=== PATIENT | male | born 1965 | race African-American/Black ===

== ENCOUNTER 2018-12-28 10:52 | Inpatient (IN) | payer BC, OTHER ==
[~2018-12-28] VITALS: Ht 172.7 cm; Wt 73.9 kg
[~2018-12-28 10:52] MED LIST: CARI250T PO
[2018-12-28 14:31] LABS: BASOPHILS % 0.6 % (0.0-2.0); EOSINOPHILS % 4.3 % (0.0-5.0); HEMATOCRIT. 40.4 % (42.0-52.0); HEMOGLOBIN. 13.3 g/dL (14.0-18.0); LYMPHOCYTES % 10.2 % (20.0-50.0); MEAN CORPUSCULAR HEMOGLOBIN 26.4 pg (28.0-32.0); MEAN CORPUSCULAR VOLUME 80.2 fL (80.0-94.0); MEAN PLATELET VOLUME 8.4 fl (7.4-10.4); MONOCYTES % 11.6 % (2.0-8.0); NEUTROPHILS % 73.3 % (40.0-76.0); PLATELET 245 x1000/uL (130-400); RED BLOOD CELL COUNT 5.03 mill/uL (4.7-6.1); RED CELL DISTRIBUTION WIDTH 14.8 % (11.6-14.6)
[2018-12-28 14:36] LABS: CHLORIDE 102 mEq/L (98-107); INR 1.1; PROTHROMBIN TIME 10.8 sec (9.1-11.1)
[2018-12-28] MEDS ORDERED: AMLODIPINE 10MG TABLET PO ONE (15:00)
[2018-12-28 18:45] LABS: CLARITY URINE CLEAR (CLEAR); COLOR URINE YELLOW (YELLOW); KETONES URINE 1+ (NEGATIVE); LEUKOCYTE ESTERASE URINE NEGATIVE (NEGATIVE); NITRITE URINE NEGATIVE (NEGATIVE); OCCULT BLOOD URINE NEGATIVE (NEGATIVE); PROTEIN URINE 1+ (NEGATIVE); SPECIFIC GRAVITY URINE 1.019 (1.005-1.030)
[2018-12-28 18:53] LABS: *AMPHETAMINES SCREEN URINE NEGATIVE (NEGATIVE); *BARBITURATES SCREEN URINE NEGATIVE (NEGATIVE); *BENZODIAZEPINES SCREEN URINE NEGATIVE (NEGATIVE)
[2018-12-28 18:54] LABS: *COCAINE SCREEN URINE NEGATIVE (NEGATIVE); CANNABINOID URINE SCREEN NEGATIVE (NEGATIVE); METHADONE URINE SCREEN NEGATIVE (NEGATIVE); OPIATES URINE SCREEN NEGATIVE (NEGATIVE); PHENCYCLIDINE URINE SCREEN NEGATIVE (NEGATIVE)
[2018-12-28 22:30] VITALS: BP_SYST 139; BP_SYST 169; BP_DIAS 100
[2018-12-28] MEDS ORDERED: HYDROCODONE/ACETAMINOPHEN 5/325MG TABLET PO PRN (23:15)
[2018-12-28] MEDS ORDERED: ONDANSETRON HCL 4MG/2ML INJ IV PRN (23:15)
[2018-12-28] MEDS ORDERED: ACETAMINOPHEN 325MG TABLET PO PRN (23:15)
[2018-12-28] MEDS ORDERED: LORAZEPAM 2MG/ML CPJ IV PRN (23:15)
[2018-12-28] MEDS ORDERED: MORPHINE SULFATE 4 MG/ML CPJ (NOT FOR IM USE) IV PRN (23:15)
[2018-12-28] MEDS: THIAMINE HCL 100MG TABLET PO SCH (23:43)
[2018-12-28] MEDS: METOPROLOL TARTRATE 25MG TABLET PO SCH (23:44)
[2018-12-28] MEDS: LISINOPRIL 20MG TABLET PO SCH (23:44)
[2018-12-29 00:30] VITALS: BP 150/93
[2018-12-29 04:00] VITALS: BP 158/89
[2018-12-29 08:19] VITALS: BP 142/86
[2018-12-29 08:32] LABS: BASOPHILS % 0.6 % (0.0-2.0); EOSINOPHILS % 4.8 % (0.0-5.0); HEMATOCRIT. 39.9 % (42.0-52.0); HEMOGLOBIN. 13.1 g/dL (14.0-18.0); LYMPHOCYTES % 12.9 % (20.0-50.0); MEAN CORPUSCULAR HEMOGLOBIN 26.2 pg (28.0-32.0); MEAN CORPUSCULAR VOLUME 79.7 fL (80.0-94.0); MEAN PLATELET VOLUME 8.6 fl (7.4-10.4); MONOCYTES % 11.7 % (2.0-8.0); PLATELET 254 x1000/uL (130-400)
[2018-12-29] MEDS ORDERED: FUROSEMIDE 40MG/4ML VIAL IV SCH (09:00)
[2018-12-29] MEDS ORDERED: ASPIRIN 81MG EC TABLET PO SCH (09:00)
[2018-12-29] MEDS: THIAMINE HCL 100MG TABLET PO SCH (09:08)
[2018-12-29] MEDS: METOPROLOL TARTRATE 25MG TABLET PO SCH (09:08)
[2018-12-29] MEDS: LISINOPRIL 20MG TABLET PO SCH (09:09)
[2018-12-29 12:20] VITALS: BP 139/90
[2018-12-29 16:11] VITALS: BP 152/91
[2018-12-29 16:13] VITALS: BP 139/90
== END 2018-12-29 18:56 | disposition home or self-care (01) | DRG 305 ==
LOC: ER 12:23 → 6WST 15:31 → EDBEDREQ 15:32 → ENRESERV 21:29
PROVIDERS: ADMIT Internal Medicine Nephrology; ATTEND Internal Medicine Nephrology
DX: I16.0 Hypertensive urgency (principal); E44.0 Moderate protein-calorie malnutrition; I12.9 Hypertensive chronic kidney disease with stage 1 through stage 4 chronic kidney disease, or unspecified chronic kidney disease; N18.3 Chronic kidney disease, stage 3 (moderate)
CPT/HCPCS: 36415; 71045; 80048; 80305; 83735; 83880; 84484; 93005; 93971; 96374; 99285; J1940

== ENCOUNTER 2019-01-20 17:33 | Inpatient (IN) | payer BC ==
[~2019-01-20] VITALS: Ht 175.3 cm; Wt 73.0 kg
[2019-01-20] MEDS ORDERED: FURO40TA5 MT (18:11)
[2019-01-20] MEDS ORDERED: LISI-604 MT (18:11)
[2019-01-20] MEDS ORDERED: METO25TA6 MT (18:11)
[2019-01-20] MEDS ORDERED: ONDANSETRON HCL 4MG/2ML INJ IV STA (20:29)
[2019-01-20] MEDS ORDERED: SODIUM CHLORIDE 0.9% 1,000 ML IV ONE (20:29)
[2019-01-20 20:45] LABS: BASOPHILS % 0.8 % (0.0-2.0); EOSINOPHILS % 3.1 % (0.0-5.0); HEMATOCRIT. 41.8 % (42.0-52.0); MEAN CORPUSCULAR HEMOGLOBIN 26.9 pg (28.0-32.0); MEAN CORPUSCULAR VOLUME 80.7 fL (80.0-94.0); NEUTROPHILS % 76.1 % (40.0-76.0); PLATELET 372 x1000/uL (130-400); RED BLOOD CELL COUNT 5.18 mill/uL (4.7-6.1); RED CELL DISTRIBUTION WIDTH 15.2 % (11.6-14.6)
[2019-01-20 20:52] LABS: CHLORIDE 96 mEq/L (98-107)
[2019-01-21] MEDS ORDERED: GUAIFENESIN 200MG/10ML SUGAR FREE UDC PO PRN
[2019-01-21 02:06] VITALS: BP 132/84
[2019-01-21] MEDS ORDERED: SODIUM CHLORIDE 0.9% 1,000 ML IV SCH (02:30)
[2019-01-21 04:00] VITALS: BP 115/57
[2019-01-21 07:11] LABS: HEMOGLOBIN. 11.2 g/dL (14.0-18.0); MEAN CORPUSCULAR HEMOGLOBIN 26.3 pg (28.0-32.0); MEAN CORPUSCULAR VOLUME 80.2 fL (80.0-94.0); MEAN PLATELET VOLUME 8.9 fl (7.4-10.4); PLATELET 307 x1000/uL (130-400); RED BLOOD CELL COUNT 4.24 mill/uL (4.7-6.1); RED CELL DISTRIBUTION WIDTH 14.9 % (11.6-14.6)
[2019-01-21 08:00] VITALS: BP 124/71
[2019-01-21] MEDS: ENOXAPARIN 40MG/0.4ML SYR SUBCUT SCH (08:36)
[2019-01-21 10:19] LABS: PLATELET ESTIMATE NORMAL
[2019-01-21 12:00] VITALS: BP 116/75
[2019-01-21 15:32] LABS: BG BASE EXCESS -1.5 mmol/L (-2.0-2.0); BG CARBOXYHEMOGLOBIN 0.2 % (0.5-1.5); BG DEOXYHEMOGLOBIN 4.7 % (0.0-5.0); BG HCO3 ACT 21.9 mmol/L (22.0-26.0); BG METHEMOGLOBIN 0.4 % (0.0-1.5); BG OXYGEN SATURATION 95.3 % (92.0-98.5); BG OXYHEMOGLOBIN 94.7 % (94.0-97.0); BG PCO2 32.8 mmHg (35.0-45.0); BG PH 7.443 (7.350-7.450); BG PO2 80.6 mmHg (75.0-100.0); BG SAMPLE SITE LEFT BRACHIAL; BG TOTAL HEMOGLOBIN 11.8 g/dL (12.0-18.0); BG VENT MODE ROOM AIR
[2019-01-21 16:00] VITALS: BP 128/77
[2019-01-21 20:00] VITALS: BP 147/81
[2019-01-21] MEDS: ACETAMINOPHEN 325MG TABLET PO PRN (22:05)
[2019-01-22] VITALS (7 sets, daily range): BP systolic 122–155; BP diastolic 69–89
[2019-01-22 06:14] LABS: BASOPHILS % 0.6 % (0.0-2.0); EOSINOPHILS % 6.5 % (0.0-5.0); HEMATOCRIT. 35.3 % (42.0-52.0); HEMOGLOBIN. 11.7 g/dL (14.0-18.0); LYMPHOCYTES % 10.8 % (20.0-50.0); MEAN CORPUSCULAR HEMOGLOBIN 26.7 pg (28.0-32.0); MEAN CORPUSCULAR VOLUME 80.4 fL (80.0-94.0); MEAN PLATELET VOLUME 8.9 fl (7.4-10.4); MONOCYTES % 14.9 % (2.0-8.0); NEUTROPHILS % 67.2 % (40.0-76.0); PLATELET 306 x1000/uL (130-400); RED CELL DISTRIBUTION WIDTH 14.4 % (11.6-14.6)
[2019-01-22 06:52] LABS: HEPATITIS B SURFACE ANTIGEN NEGATIVE
[2019-01-22] MEDS: ENOXAPARIN 40MG/0.4ML SYR SUBCUT SCH (08:01)
[2019-01-22] MEDS: ACETAMINOPHEN 325MG TABLET PO PRN (21:06)
[2019-01-23] VITALS (7 sets, daily range): BP systolic 110–159; BP diastolic 75–95
[2019-01-23] MEDS: CLONIDINE 0.1MG TABLET PO PRN (04:35)
[2019-01-23 06:51] LABS: INR 1.1; PROTHROMBIN TIME 10.9 sec (9.1-11.1)
[2019-01-23 06:54] LABS: HEMATOCRIT. 33.8 % (42.0-52.0); MEAN CORPUSCULAR HEMOGLOBIN 26.1 pg (28.0-32.0); MEAN CORPUSCULAR VOLUME 79.8 fL (80.0-94.0); MEAN PLATELET VOLUME 8.3 fl (7.4-10.4); PLATELET 291 x1000/uL (130-400); RED BLOOD CELL COUNT 4.23 mill/uL (4.7-6.1); RED CELL DISTRIBUTION WIDTH 14.6 % (11.6-14.6)
[2019-01-23] MEDS: ENOXAPARIN 40MG/0.4ML SYR SUBCUT SCH (10:49)
[2019-01-23 10:59] LABS: PLATELET ESTIMATE NORMAL
[2019-01-23 15:11] LABS: HIV SCREEN 4G Non Reactive (Non Reactive)
[2019-01-24] VITALS: BP 135/89
[2019-01-24 04:00] VITALS: BP 145/99
[2019-01-24 08:00] VITALS: BP 147/90
[2019-01-24] MEDS: ENOXAPARIN 40MG/0.4ML SYR SUBCUT SCH (08:33)
[2019-01-24 10:10] LABS: ANGIOTENSION CONVERTING ENZYME 21 U/L (14-82); GLOMERULAR BASEMENT MEMB AB 4 units (0-20)
[2019-01-24 12:00] VITALS: BP 143/65
[2019-01-24 16:00] VITALS: BP 126/78
[2019-01-24 19:09] LABS: ANTI-NUCLEAR ANTIBODIES DIRECT Negative (Negative)
[2019-01-24 20:00] VITALS: BP_SYST 145; BP_SYST 150; BP_SYST 162; BP_DIAS 85; BP_DIAS 89
[2019-01-24] MEDS ORDERED: DOCUSATE SODIUM 100MG CAPSULE PO SCH (21:00)
[2019-01-24] MEDS ORDERED: BISACODYL 10MG SUPP PR PRN (21:00)
[2019-01-25] VITALS (34 sets, daily range): BP systolic 122–242; BP diastolic 66–119
[2019-01-25] MEDS ORDERED: DEXT 5%/0.45% NACL 1000ML 1,000 ML IV SCH (07:30)
[2019-01-25 08:23] LABS: INR 1.1; PROTHROMBIN TIME 10.9 sec (9.1-11.1)
[2019-01-25 08:26] LABS: BASOPHILS % 0.8 % (0.0-2.0); EOSINOPHILS % 4.6 % (0.0-5.0); HEMATOCRIT. 35.4 % (42.0-52.0); HEMOGLOBIN. 11.7 g/dL (14.0-18.0); LYMPHOCYTES % 13.1 % (20.0-50.0); MEAN CORPUSCULAR HEMOGLOBIN 26.4 pg (28.0-32.0); MEAN CORPUSCULAR VOLUME 80.1 fL (80.0-94.0); MEAN PLATELET VOLUME 8.3 fl (7.4-10.4); MONOCYTES % 14.4 % (2.0-8.0); NEUTROPHILS % 67.1 % (40.0-76.0); PLATELET 335 x1000/uL (130-400); RED BLOOD CELL COUNT 4.42 mill/uL (4.7-6.1); RED CELL DISTRIBUTION WIDTH 14.9 % (11.6-14.6)
[2019-01-25 08:42] LABS: CHLORIDE 102 mEq/L (98-107)
[2019-01-25] MEDS: ENOXAPARIN 40MG/0.4ML SYR SUBCUT SCH (09:00)
[2019-01-25] MEDS ORDERED: BUPIVACAINE/EPINEPH/PF 0.25%/0.0005 10ML ONE ×2 (12:42→15:26)
[2019-01-25] MEDS ORDERED: NORMAL SALINE 0.9% 10 ML SYR ONE (12:43)
[2019-01-25] MEDS ORDERED: SKIN ADHESIVE 0.7 GM EA TOP ONE (12:43)
[2019-01-25] MEDS ORDERED: BACITRACIN 50,000 UNITS/VIAL ONE (12:43)
[2019-01-25] MEDS ORDERED: BACITRACIN 15GM TUBE TOP ONE (12:43)
[2019-01-25] MEDS ORDERED: ROCURONIUM BROMIDE 10MG/ML VIAL 5ML IV ONE ×2 (12:53→14:57)
[2019-01-25] MEDS ORDERED: TETRACAINE/BENZOCAINE/BUTAMBEN 20 GM SPRAY MM ONE (12:54)
[2019-01-25] MEDS ORDERED: SODIUM CHLORIDE 0.9% 10ML VIAL ONE (12:57)
[2019-01-25] MEDS ORDERED: FENTANYL CITRATE/PF 50MCG/ML 2ML VIAL ONE ×2 (12:57→13:53)
[2019-01-25] MEDS ORDERED: ETOMIDATE 2MG/ML 10ML VIAL IV ONE (12:58)
[2019-01-25] MEDS ORDERED: ONDANSETRON HCL 4MG/2ML INJ ONE (12:58)
[2019-01-25] MEDS ORDERED: MIDAZOLAM HCL 2 MG/2 ML VIAL ONE (13:07)
[2019-01-25] MEDS ORDERED: LIDOCAINE HCL/PF 1% 10 MG/ML 5ML VIAL ONE (13:19)
[2019-01-25] MEDS ORDERED: DEXAMETHASONE 4MG/ML 1ML VIAL ONE ×2 (14:37→14:39)
[2019-01-25] MEDS ORDERED: SODIUM CHLORIDE 0.9% 500 ML IV PRN (15:57)
[2019-01-25] MEDS ORDERED: ACETAMINOPHEN 325MG TABLET PO PRN (16:00)
[2019-01-25] MEDS: MAGNESIUM HYDROXIDE 400MG/5ML 30ML UDC PO SCH ×3 (16:00→21:30)
[2019-01-25] MEDS ORDERED: OXYCODONE HCL/ACETAMINOPHEN 5/325MG TABLET PO PRN (16:00)
[2019-01-25] MEDS ORDERED: ONDANSETRON HCL 4MG/2ML INJ IV PRN (16:00)
[2019-01-25] MEDS ORDERED: LABETALOL 5MG/ML SYR 20 MG/4 ML SYRINGE IV NR (16:15)
[2019-01-25 16:32] LABS: BG BASE EXCESS -5.2 mmol/L (-2.0-2.0); BG CARBOXYHEMOGLOBIN 0.3 % (0.5-1.5); BG DEOXYHEMOGLOBIN 0.4 % (0.0-5.0); BG FRACTION INSPIRED OXYGEN 99.8; BG HCO3 ACT 20.8 mmol/L (22.0-26.0); BG METHEMOGLOBIN 0.3 % (0.0-1.5); BG OXYGEN SATURATION 99.6 % (92.0-98.5); BG PCO2 41.9 mmHg (35.0-45.0); BG PH 7.313 (7.350-7.450); BG SAMPLE SITE A-LINE; BG TOTAL HEMOGLOBIN 12.6 g/dL (12.0-18.0); BG VENT MODE MASK - NRB
[2019-01-25] MEDS: MORPHINE SULFATE 4 MG/ML CPJ (NOT FOR IM USE) IV PRN (16:35)
[2019-01-25] MEDS: DEXT 5%/0.45% NACL 1000ML 1,000 ML IV SCH (16:35)
[2019-01-25] MEDS: CEFAZOLIN 1000MG PREMIX 50 ML IV SCH (17:59)
[2019-01-25] MEDS ORDERED: MORPHINE SULFATE 4 MG/ML CPJ (NOT FOR IM USE) IV SCH (18:00)
[2019-01-25] MEDS: CLONIDINE 0.1MG TABLET PO PRN (18:45)
[2019-01-25 19:06] LABS: HISTOPLASMA ABS QT DID Negative (Neg:<1:1)
[2019-01-25] MEDS: IPRATROPIUM/ALBUTEROL 0.5-3(2.5)MG/3ML NEB HHN SCH (20:08)
[2019-01-25] MEDS: HYDRALAZINE HCL 25MG TABLET PO SCH (21:31)
[2019-01-25] MEDS: OXYCODONE HCL/ACETAMINOPHEN 5/325MG TABLET PO PRN (21:32)
[2019-01-26] VITALS (83 sets, daily range): BP systolic 126–201; BP diastolic 79–124
[2019-01-26] MEDS: IPRATROPIUM/ALBUTEROL 0.5-3(2.5)MG/3ML NEB HHN SCH ×6 (00:02→19:50)
[2019-01-26] MEDS: MAGNESIUM HYDROXIDE 400MG/5ML 30ML UDC PO SCH ×5 (00:21→16:03)
[2019-01-26] MEDS: CEFAZOLIN 1000MG PREMIX 50 ML IV SCH ×3 (02:05→17:48)
[2019-01-26] MEDS: HYDRALAZINE HCL 25MG TABLET PO SCH ×3 (04:37→16:03)
[2019-01-26] MEDS: OXYCODONE HCL/ACETAMINOPHEN 5/325MG TABLET PO PRN (04:38)
[2019-01-26] MEDS: MORPHINE SULFATE 4 MG/ML CPJ (NOT FOR IM USE) IV PRN (05:59)
[2019-01-26 07:02] LABS: HEMATOCRIT. 33.3 % (42.0-52.0); MEAN CORPUSCULAR HEMOGLOBIN 26.3 pg (28.0-32.0); MEAN CORPUSCULAR VOLUME 79.9 fL (80.0-94.0); MEAN PLATELET VOLUME 8.4 fl (7.4-10.4); PLATELET 385 x1000/uL (130-400); RED BLOOD CELL COUNT 4.17 mill/uL (4.7-6.1); RED CELL DISTRIBUTION WIDTH 14.7 % (11.6-14.6)
[2019-01-26] MEDS: DEXT 5%/0.45% NACL 1000ML 1,000 ML IV SCH (08:22)
[2019-01-26 08:27] LABS: PLATELET ESTIMATE NORMAL
[2019-01-26] MEDS: FAMOTIDINE 20MG/2ML VIAL IV SCH (08:38)
[2019-01-26] MEDS: DOCUSATE SODIUM 100MG CAPSULE PO SCH ×2 (08:39→17:47)
[2019-01-26] MEDS: ENOXAPARIN 40MG/0.4ML SYR SUBCUT SCH (08:39)
[2019-01-26] MEDS ORDERED: PREDNISONE 10MG TABLET PO SCH (09:00)
[2019-01-26] MEDS ORDERED: PREDNISONE 20MG TABLET PO NR (09:45)
[2019-01-26 14:16] LABS: QFT TB GOLD PLUS Negative (Negative); QFT TB1 AG VALUE 0.11 IU/mL (.)
[2019-01-26] MEDS: PREDNISONE 10MG TABLET PO SCH (17:47)
[2019-01-26] MEDS: CLONIDINE 0.1MG TABLET PO PRN (19:37)
[2019-01-26] MEDS: HYDRALAZINE HCL 50MG TABLET PO SCH (20:42)
[2019-01-27] VITALS (66 sets, daily range): BP systolic 117–187; BP diastolic 55–124
[2019-01-27] MEDS: IPRATROPIUM/ALBUTEROL 0.5-3(2.5)MG/3ML NEB HHN SCH ×6 (00:22→21:03)
[2019-01-27] MEDS: CLONIDINE 0.1MG TABLET PO PRN ×2 (01:07→18:13)
[2019-01-27] MEDS: DEXT 5%/0.45% NACL 1000ML 1,000 ML IV SCH ×2 (01:07→18:01)
[2019-01-27] MEDS: MORPHINE SULFATE 4 MG/ML CPJ (NOT FOR IM USE) IV PRN ×2 (01:22→23:39)
[2019-01-27] MEDS: HYDRALAZINE HCL 50MG TABLET PO SCH ×4 (03:31→20:39)
[2019-01-27 06:21] LABS: HEMATOCRIT. 35.4 % (42.0-52.0); HEMOGLOBIN. 11.6 g/dL (14.0-18.0); MEAN CORPUSCULAR HEMOGLOBIN 26.2 pg (28.0-32.0); MEAN CORPUSCULAR VOLUME 79.9 fL (80.0-94.0); MEAN PLATELET VOLUME 8.5 fl (7.4-10.4); PLATELET 373 x1000/uL (130-400); RED BLOOD CELL COUNT 4.42 mill/uL (4.7-6.1); RED CELL DISTRIBUTION WIDTH 15.2 % (11.6-14.6)
[2019-01-27 06:47] LABS: PHOSPHORUS 3.4 mg/dL (2.5-4.9)
[2019-01-27 07:20] LABS: PLATELET ESTIMATE NORMAL
[2019-01-27] MEDS: DOCUSATE SODIUM 100MG CAPSULE PO SCH ×2 (09:00→16:32)
[2019-01-27] MEDS: ENOXAPARIN 40MG/0.4ML SYR SUBCUT SCH (09:48)
[2019-01-27] MEDS: FAMOTIDINE 20MG/2ML VIAL IV SCH (09:49)
[2019-01-27] MEDS: PREDNISONE 10MG TABLET PO SCH (09:49)
[2019-01-27] MEDS ORDERED: SODIUM CHLORIDE 0.9% 250 ML IV ONE (10:15)
[2019-01-27] MEDS: CALCIUM CARBONATE 1250MG TABLET (500MG ELEMENTAL CALCIUM) PO SCH (13:20)
[2019-01-27] MEDS: AMLODIPINE 2.5MG TABLET PO SCH ×2 (18:38→23:38)
[2019-01-27] MEDS: FAMOTIDINE 20MG TABLET PO SCH (20:28)
[2019-01-28] VITALS (41 sets, daily range): BP systolic 124–165; BP diastolic 80–109
[2019-01-28] MEDS: IPRATROPIUM/ALBUTEROL 0.5-3(2.5)MG/3ML NEB HHN SCH ×6 (01:03→20:33)
[2019-01-28] MEDS: HYDRALAZINE HCL 50MG TABLET PO SCH ×4 (05:38→21:31)
[2019-01-28] MEDS: AMLODIPINE 2.5MG TABLET PO SCH ×3 (05:44→17:37)
[2019-01-28 06:32] LABS: EOSINOPHILS % 0.6 % (0.0-5.0); HEMATOCRIT. 34.8 % (42.0-52.0); HEMOGLOBIN. 11.4 g/dL (14.0-18.0); LYMPHOCYTES % 7.3 % (20.0-50.0); MEAN CORPUSCULAR HEMOGLOBIN 26.5 pg (28.0-32.0); MONOCYTES % 10.5 % (2.0-8.0); NEUTROPHILS % 81.6 % (40.0-76.0); PLATELET 343 x1000/uL (130-400); RED BLOOD CELL COUNT 4.29 mill/uL (4.7-6.1); RED CELL DISTRIBUTION WIDTH 15.3 % (11.6-14.6)
[2019-01-28] MEDS: DOCUSATE SODIUM 100MG CAPSULE PO SCH ×3 (09:00→16:24)
[2019-01-28] MEDS: CALCIUM CARBONATE 1250MG TABLET (500MG ELEMENTAL CALCIUM) PO SCH (09:16)
[2019-01-28] MEDS: FAMOTIDINE 20MG TABLET PO SCH ×2 (09:16→21:31)
[2019-01-28 09:17] LABS: BG BASE EXCESS -1.4 mmol/L (-2.0-2.0); BG CARBOXYHEMOGLOBIN 0.2 % (0.5-1.5); BG DEOXYHEMOGLOBIN 2.7 % (0.0-5.0); BG FRACTION INSPIRED OXYGEN 28; BG HCO3 ACT 23.2 mmol/L (22.0-26.0); BG METHEMOGLOBIN 0.4 % (0.0-1.5); BG OXYGEN SATURATION 97.3 % (92.0-98.5); BG OXYHEMOGLOBIN 96.7 % (94.0-97.0); BG PCO2 38.5 mmHg (35.0-45.0); BG PH 7.398 (7.350-7.450); BG PO2 101.8 mmHg (75.0-100.0); BG SAMPLE SITE RIGHT BRACHIAL; BG TOTAL HEMOGLOBIN 12.2 g/dL (12.0-18.0); BG VENT MODE NASAL CANNULA
[2019-01-28] MEDS: ENOXAPARIN 40MG/0.4ML SYR SUBCUT SCH (09:17)
[2019-01-28] MEDS: MORPHINE SULFATE 4 MG/ML CPJ (NOT FOR IM USE) IV PRN (09:38)
[2019-01-28] MEDS: DEXT 5%/0.45% NACL 1000ML 1,000 ML IV SCH (12:31)
[2019-01-28] MEDS: CLONIDINE 0.1MG TABLET PO PRN (19:09)
[2019-01-29] VITALS (47 sets, daily range): BP systolic 109–172; BP diastolic 65–121
[2019-01-29] MEDS: AMLODIPINE 2.5MG TABLET PO SCH ×4 (00:12→18:31)
[2019-01-29] MEDS: IPRATROPIUM/ALBUTEROL 0.5-3(2.5)MG/3ML NEB HHN SCH ×6 (00:53→20:58)
[2019-01-29] MEDS: HYDRALAZINE HCL 50MG TABLET PO SCH ×4 (03:25→21:02)
[2019-01-29] MEDS: DEXT 5%/0.45% NACL 1000ML 1,000 ML IV SCH ×2 (03:25→11:00)
[2019-01-29 04:59] LABS: BASOPHILS % 0.3 % (0.0-2.0); EOSINOPHILS % 1.9 % (0.0-5.0); HEMATOCRIT. 35.4 % (42.0-52.0); HEMOGLOBIN. 11.4 g/dL (14.0-18.0); LYMPHOCYTES % 8.5 % (20.0-50.0); MEAN CORPUSCULAR HEMOGLOBIN 26.2 pg (28.0-32.0); MEAN CORPUSCULAR VOLUME 81.3 fL (80.0-94.0); MONOCYTES % 13.9 % (2.0-8.0); NEUTROPHILS % 75.4 % (40.0-76.0); PLATELET 377 x1000/uL (130-400); RED BLOOD CELL COUNT 4.36 mill/uL (4.7-6.1); RED CELL DISTRIBUTION WIDTH 15.9 % (11.6-14.6)
[2019-01-29] MEDS: FAMOTIDINE 20MG TABLET PO SCH ×2 (09:04→21:02)
[2019-01-29] MEDS: CALCIUM CARBONATE 1250MG TABLET (500MG ELEMENTAL CALCIUM) PO SCH (09:04)
[2019-01-29] MEDS: ENOXAPARIN 40MG/0.4ML SYR SUBCUT SCH (09:04)
[2019-01-29] MEDS: DOCUSATE SODIUM 100MG CAPSULE PO SCH ×2 (09:04→16:20)
[2019-01-29] MEDS: OXYCODONE HCL/ACETAMINOPHEN 5/325MG TABLET PO PRN ×2 (10:19→18:31)
[2019-01-30] VITALS (28 sets, daily range): BP systolic 124–151; BP diastolic 80–98
[2019-01-30] MEDS: AMLODIPINE 2.5MG TABLET PO SCH ×5 (00:37→23:56)
[2019-01-30] MEDS: HYDRALAZINE HCL 50MG TABLET PO SCH ×4 (03:05→21:29)
[2019-01-30] MEDS: DEXT 5%/0.45% NACL 1000ML 1,000 ML IV SCH (04:00)
[2019-01-30 04:47] LABS: HEMATOCRIT. 33.3 % (42.0-52.0); MEAN CORPUSCULAR HEMOGLOBIN 26.5 pg (28.0-32.0); MEAN CORPUSCULAR VOLUME 80.3 fL (80.0-94.0); MEAN PLATELET VOLUME 7.9 fl (7.4-10.4); PLATELET 341 x1000/uL (130-400); RED BLOOD CELL COUNT 4.15 mill/uL (4.7-6.1); RED CELL DISTRIBUTION WIDTH 15.2 % (11.6-14.6)
[2019-01-30] MEDS: IPRATROPIUM/ALBUTEROL 0.5-3(2.5)MG/3ML NEB HHN SCH ×3 (05:10→08:17)
[2019-01-30 07:28] LABS: PLATELET ESTIMATE NORMAL
[2019-01-30 07:36] LABS: BG BASE EXCESS 2.8 mmol/L (-2.0-2.0); BG CARBOXYHEMOGLOBIN 0.2 % (0.5-1.5); BG FRACTION INSPIRED OXYGEN 24; BG HCO3 ACT 27.1 mmol/L (22.0-26.0); BG METHEMOGLOBIN 0.4 % (0.0-1.5); BG OXYHEMOGLOBIN 95.4 % (94.0-97.0); BG PCO2 40.5 mmHg (35.0-45.0); BG PH 7.443 (7.350-7.450); BG PO2 80.5 mmHg (75.0-100.0); BG SAMPLE SITE RIGHT BRACHIAL; BG TOTAL HEMOGLOBIN 11.7 g/dL (12.0-18.0); BG VENT MODE NASAL CANNULA
[2019-01-30] MEDS: DOCUSATE SODIUM 100MG CAPSULE PO SCH ×2 (09:23→17:49)
[2019-01-30] MEDS: PREDNISONE 10MG TABLET PO SCH ×2 (09:23→17:50)
[2019-01-30] MEDS: FAMOTIDINE 20MG TABLET PO SCH ×2 (09:24→21:29)
[2019-01-30] MEDS: ENOXAPARIN 40MG/0.4ML SYR SUBCUT SCH (09:24)
[2019-01-30] MEDS: CALCIUM CARBONATE 1250MG TABLET (500MG ELEMENTAL CALCIUM) PO SCH (09:24)
[2019-01-30] MEDS: ALBUTEROL (0.083%) 2.5MG/3ML NEB HHN SCH ×2 (12:45→21:09)
[2019-01-31] VITALS (12 sets, daily range): BP systolic 125–160; BP diastolic 86–114
[2019-01-31] MEDS: HYDRALAZINE HCL 50MG TABLET PO SCH ×4 (03:51→21:12)
[2019-01-31 06:12] LABS: HEMATOCRIT. 35.3 % (42.0-52.0); HEMOGLOBIN. 11.7 g/dL (14.0-18.0); MEAN CORPUSCULAR HEMOGLOBIN 26.6 pg (28.0-32.0); MEAN CORPUSCULAR VOLUME 79.9 fL (80.0-94.0); PLATELET 343 x1000/uL (130-400); RED BLOOD CELL COUNT 4.41 mill/uL (4.7-6.1); RED CELL DISTRIBUTION WIDTH 15.2 % (11.6-14.6)
[2019-01-31] MEDS: AMLODIPINE 2.5MG TABLET PO SCH ×3 (06:21→17:39)
[2019-01-31] MEDS: CALCIUM CARBONATE 1250MG TABLET (500MG ELEMENTAL CALCIUM) PO SCH (07:48)
[2019-01-31] MEDS: PREDNISONE 10MG TABLET PO SCH ×2 (07:48→17:39)
[2019-01-31] MEDS: FAMOTIDINE 20MG TABLET PO SCH ×2 (07:49→21:11)
[2019-01-31] MEDS: ENOXAPARIN 40MG/0.4ML SYR SUBCUT SCH (07:49)
[2019-01-31] MEDS: DOCUSATE SODIUM 100MG CAPSULE PO SCH ×2 (07:50→16:00)
[2019-01-31] MEDS ORDERED: METOPROLOL TARTRATE 50MG TABLET PO SCH (09:00)
[2019-01-31] MEDS: ALBUTEROL (0.083%) 2.5MG/3ML NEB HHN SCH ×3 (09:27→21:27)
[2019-01-31] MEDS: DEXT 5%/0.45% NACL 1000ML 1,000 ML IV SCH (11:37)
[2019-01-31 16:05] LABS: PLATELET ESTIMATE NORMAL
[2019-01-31] MEDS: METOPROLOL TARTRATE 25MG TABLET PO SCH (21:12)
[2019-02-01] VITALS (11 sets, daily range): BP systolic 138–161; BP diastolic 82–102
[2019-02-01] MEDS: AMLODIPINE 2.5MG TABLET PO SCH ×3 (00:14→11:55)
[2019-02-01] MEDS: HYDRALAZINE HCL 50MG TABLET PO SCH ×2 (03:53→09:32)
[2019-02-01 07:16] LABS: HEMATOCRIT. 34.4 % (42.0-52.0); HEMOGLOBIN. 11.3 g/dL (14.0-18.0); MEAN CORPUSCULAR HEMOGLOBIN 26.4 pg (28.0-32.0); MEAN PLATELET VOLUME 8.4 fl (7.4-10.4); PLATELET 354 x1000/uL (130-400); RED CELL DISTRIBUTION WIDTH 15.1 % (11.6-14.6)
[2019-02-01] MEDS: CALCIUM CARBONATE 1250MG TABLET (500MG ELEMENTAL CALCIUM) PO SCH (08:05)
[2019-02-01] MEDS: ENOXAPARIN 40MG/0.4ML SYR SUBCUT SCH (08:05)
[2019-02-01] MEDS: FAMOTIDINE 20MG TABLET PO SCH (08:05)
[2019-02-01] MEDS: METOPROLOL TARTRATE 25MG TABLET PO SCH (08:07)
[2019-02-01] MEDS: PREDNISONE 10MG TABLET PO SCH (08:11)
[2019-02-01] MEDS: ALBUTEROL (0.083%) 2.5MG/3ML NEB HHN SCH (08:23)
[2019-02-01] MEDS: DOCUSATE SODIUM 100MG CAPSULE PO SCH (09:00)
[2019-02-01] MEDS ORDERED: LOPHC2 PO (09:16)
[2019-02-01] MEDS ORDERED: AMLO10TA4 PO (09:17)
[2019-02-01] MEDS ORDERED: HYDR-4135 PO (09:17)
[2019-02-01] MEDS ORDERED: PRED10TA PO (09:18)
[2019-02-01] MEDS ORDERED: FAMO-135 PO (09:20)
[2019-02-01] MEDS ORDERED: CALC-1042 PO (09:23)
[2019-02-01] MEDS: DEXT 5%/0.45% NACL 1000ML 1,000 ML IV SCH (10:45)
[2019-02-01 11:34] LABS: PLATELET ESTIMATE NORMAL
== END 2019-02-01 13:20 | disposition home or self-care (01) | DRG 167 ==
LOC: ER 18:47 → 8WST 21:51 → SUPCPDRO 23:45 → ENRESERV 01-21 00:02 → 8WST 01-21 03:07 → CVICU 01-25 16:07 → 3WST 01-30 13:55
PROVIDERS: ADMIT Internal Medicine Nephrology; ATTEND Internal Medicine Nephrology
PROC: 0BBH4ZX Excision of Lung Lingula, Percutaneous Endoscopic Approach, Diagnostic (ICD-10-PCS; principal; 2019-01-25)
PROC: 07B74ZX Excision of Thorax Lymphatic, Percutaneous Endoscopic Approach, Diagnostic (ICD-10-PCS; 2019-01-25)
PROC: 0W9B30Z Drainage of Left Pleural Cavity with Drainage Device, Percutaneous Approach (ICD-10-PCS; 2019-01-25)
DX: D86.2 Sarcoidosis of lung with sarcoidosis of lymph nodes (principal); N17.9 Acute kidney failure, unspecified; E87.1 Hypo-osmolality and hyponatremia; N18.4 Chronic kidney disease, stage 4 (severe); J84.9 Interstitial pulmonary disease, unspecified; E44.1 Mild protein-calorie malnutrition; R64 Cachexia; I12.9 Hypertensive chronic kidney disease with stage 1 through stage 4 chronic kidney disease, or unspecified chronic kidney disease; R59.0 Localized enlarged lymph nodes; E87.5 Hyperkalemia; J32.9 Chronic sinusitis, unspecified; E86.0 Dehydration; D64.9 Anemia, unspecified; F17.290 Nicotine dependence, other tobacco product, uncomplicated; J84.112 Idiopathic pulmonary fibrosis; Z79.52 Long term (current) use of systemic steroids; Z79.899 Other long term (current) drug therapy; Z87.01 Personal history of pneumonia (recurrent); Z68.23 Body mass index [BMI] 23.0-23.9, adult
CPT/HCPCS: 36415; 36600; 71045; 71250; 73706; 74176; 80048; 80061; 82164; 82375; 82575; 82805; 82962; 83540; 83550; 83615; 83735; 83880; 83930; 84100; 84153; 84443; 84484; 85651; 86038; 86480; 86698; 86803; 87070; 87075; 87102; 87116; 87340; 87389; 88305; 88331; 93005; 93306; 94640; 94664; 96374; 97116; 97161; 97164; 97166; 97530; 97535; 99285; J0171; J0690; J1100; J1650; J2250; J2270; J2405; J3010; J3490; J7030; J7040; J7050; J7070; J7512; J7611; J7620; L3908; G0103

== ENCOUNTER → 2019-02-20 | Outpatient (CLI) | payer BC ==
[~2019-02-20] MED LIST changes: +AMLO10TA4 PO; +CALC-1042 PO; -CARI250T PO; +FAMO-135 PO; +HYDR-4135 PO; +LOPHC2 PO; +PRED10TA PO
== END | disposition home or self-care (01) ==
LOC: NM 08:31
PROVIDERS: ATTEND Internal Medicine Nephrology
DX: D86.0 Sarcoidosis of lung (principal)
CPT/HCPCS: 78800; A9556

== ENCOUNTER 2019-05-22 19:46 | Inpatient (IN) | payer BC ==
[~2019-05-22] VITALS: Ht 165.1 cm; Wt 74.8 kg
[2019-05-22 20:53] LABS: BASOPHILS % 0.6 % (0.0-2.0); EOSINOPHILS % 0.5 % (0.0-5.0); HEMATOCRIT. 34.4 % (42.0-52.0); LYMPHOCYTES % 11.9 % (20.0-50.0); MEAN CORPUSCULAR HEMOGLOBIN 30.1 pg (28.0-32.0); MEAN CORPUSCULAR VOLUME 86.2 fL (80.0-94.0); MONOCYTES % 14.4 % (2.0-8.0); NEUTROPHILS % 72.6 % (40.0-76.0); PLATELET 220 x1000/uL (130-400); RED BLOOD CELL COUNT 3.99 mill/uL (4.7-6.1)
[2019-05-22 20:57] LABS: CHLORIDE 98 mEq/L (98-107)
[2019-05-22 21:01] LABS: PARTIAL THROMBOPLASTIN TIME 34.8 sec (23.4-31.0); PROTHROMBIN TIME 10.4 sec (9.6-11.0)
[2019-05-22 21:03] LABS: ETHANOL BLOOD < 10 mg/dL
[2019-05-22] MEDS ORDERED: METOPROLOL TARTRATE 5MG/5ML VIAL IV ONE ×2 (21:15→23:15)
[2019-05-22] MEDS ORDERED: HYDROMORPHONE HCL/PF 2MG/ML CPJ IV PRN (21:30)
[2019-05-22] MEDS ORDERED: CLONIDINE 0.1MG TABLET PO PRN (21:30)
[2019-05-22] MEDS ORDERED: ONDANSETRON HCL 4MG/2ML INJ IV PRN (21:30)
[2019-05-22] MEDS ORDERED: PIPERACILLIN/TAZ 3.375G PREMIX 50 ML IV ONE (23:45)
[2019-05-22 23:47] LABS: CLARITY URINE CLEAR (CLEAR); COLOR URINE YELLOW (YELLOW); KETONES URINE 1+ (NEGATIVE); LEUKOCYTE ESTERASE URINE NEGATIVE (NEGATIVE); NITRITE URINE NEGATIVE (NEGATIVE); OCCULT BLOOD URINE NEGATIVE (NEGATIVE); PROTEIN URINE 2+ (NEGATIVE); SPECIFIC GRAVITY URINE 1.014 (1.005-1.030)
[2019-05-23 00:15] LABS: *AMPHETAMINES SCREEN URINE NEGATIVE (NEGATIVE); *BARBITURATES SCREEN URINE NEGATIVE (NEGATIVE); *BENZODIAZEPINES SCREEN URINE NEGATIVE (NEGATIVE); *COCAINE SCREEN URINE NEGATIVE (NEGATIVE); METHADONE URINE SCREEN NEGATIVE (NEGATIVE); OPIATES URINE SCREEN NEGATIVE (NEGATIVE)
[2019-05-23 00:16] LABS: CANNABINOID URINE SCREEN NEGATIVE (NEGATIVE); PHENCYCLIDINE URINE SCREEN NEGATIVE (NEGATIVE)
[2019-05-23 03:59] VITALS: BP 155/87
[2019-05-23 04:00] VITALS: BP 155/87
[2019-05-23] MEDS ORDERED: PRED10TA PO (04:17)
[2019-05-23] MEDS ORDERED: CALC-1017 PO (04:17)
[2019-05-23] MEDS ORDERED: FURO40TA5 PO (04:17)
[2019-05-23] MEDS ORDERED: LISI-604 PO (04:17)
[2019-05-23] MEDS ORDERED: PIPERACILLIN/TAZ 3.375G PREMIX 50 ML IV SCH (05:00)
[2019-05-23] MEDS: DEXT 5%/0.45% NACL 1000ML 1,000 ML IV SCH ×2 (05:25→17:05)
[2019-05-23] MEDS ORDERED: VANCOMYCIN 1500MG in DEXTROSE 5% WATER 250ML IV SCH (06:00)
[2019-05-23 06:54] LABS: HEMATOCRIT. 28.7 % (42.0-52.0); HEMOGLOBIN. 9.9 g/dL (14.0-18.0); MEAN CORPUSCULAR HEMOGLOBIN 29.9 pg (28.0-32.0); MEAN CORPUSCULAR VOLUME 86.4 fL (80.0-94.0); MEAN PLATELET VOLUME 8.5 fl (7.4-10.4); PLATELET 209 x1000/uL (130-400); RED BLOOD CELL COUNT 3.32 mill/uL (4.7-6.1); RED CELL DISTRIBUTION WIDTH 14.3 % (11.6-14.6)
[2019-05-23 06:57] LABS: CHLORIDE 101 mEq/L (98-107)
[2019-05-23 07:08] LABS: LDL CHOLESTEROL 129 mg/dL (5-100)
[2019-05-23 07:09] LABS: HDL CHOLESTEROL 41 mg/dL (40-59)
[2019-05-23 08:00] VITALS: BP 139/83
[2019-05-23] MEDS: METOPROLOL TARTRATE 25MG TABLET PO SCH ×2 (08:35→21:18)
[2019-05-23] MEDS: AMLODIPINE 10MG TABLET PO SCH (08:35)
[2019-05-23] MEDS: ACETAMINOPHEN 325MG TABLET PO PRN ×2 (08:36→21:18)
[2019-05-23] MEDS: ENOXAPARIN 40MG/0.4ML SYR SUBCUT SCH (08:36)
[2019-05-23 12:00] VITALS: BP 135/85
[2019-05-23] MEDS: PIPERACILLIN/TAZ 3.375G PREMIX 50 ML IV SCH ×2 (12:44→17:05)
[2019-05-23 12:50] LABS: PLATELET ESTIMATE NORMAL
[2019-05-23 16:00] VITALS: BP 144/92
[2019-05-23 20:14] LABS: HEMOGLOBIN 10.4 g/dL (14.0-18.0)
[2019-05-23 20:29] VITALS: BP 153/87
[2019-05-23] MEDS: FAMOTIDINE 20MG TABLET PO SCH (21:18)
[2019-05-23] MEDS: VANCOMYCIN 750 MG PREMIX 150 ML IV SCH (21:18)
[2019-05-24 00:29] VITALS: BP 131/84
[2019-05-24] MEDS: PIPERACILLIN/TAZ 3.375G PREMIX 50 ML IV SCH ×5 (00:34→23:40)
[2019-05-24 04:00] VITALS: BP 145/87
[2019-05-24] MEDS: DEXT 5%/0.45% NACL 1000ML 1,000 ML IV SCH ×2 (06:12→21:11)
[2019-05-24 08:30] VITALS: BP 152/90
[2019-05-24] MEDS: METOPROLOL TARTRATE 25MG TABLET PO SCH ×2 (08:52→21:11)
[2019-05-24] MEDS: VANCOMYCIN 750 MG PREMIX 150 ML IV SCH ×2 (08:52→21:11)
[2019-05-24] MEDS: AMLODIPINE 10MG TABLET PO SCH (08:52)
[2019-05-24] MEDS: ENOXAPARIN 40MG/0.4ML SYR SUBCUT SCH (08:52)
[2019-05-24] MEDS: PREDNISONE 10MG TABLET PO SCH (08:53)
[2019-05-24 10:11] LABS: BASOPHILS % 0.5 % (0.0-2.0); EOSINOPHILS % 2.5 % (0.0-5.0); HEMATOCRIT. 28.1 % (42.0-52.0); HEMOGLOBIN. 9.7 g/dL (14.0-18.0); LYMPHOCYTES % 9.4 % (20.0-50.0); MEAN CORPUSCULAR HEMOGLOBIN 29.8 pg (28.0-32.0); MEAN CORPUSCULAR VOLUME 86.4 fL (80.0-94.0); MEAN PLATELET VOLUME 7.8 fl (7.4-10.4); MONOCYTES % 14.9 % (2.0-8.0); NEUTROPHILS % 72.7 % (40.0-76.0); PLATELET 219 x1000/uL (130-400); RED BLOOD CELL COUNT 3.25 mill/uL (4.7-6.1); RED CELL DISTRIBUTION WIDTH 13.8 % (11.6-14.6)
[2019-05-24 12:00] VITALS: BP 147/82
[2019-05-24 16:00] VITALS: BP 142/91
[2019-05-24 20:00] VITALS: BP 142/92
[2019-05-24] MEDS: FAMOTIDINE 20MG TABLET PO SCH (21:11)
[2019-05-25] VITALS: BP 130/90
[2019-05-25 04:00] VITALS: BP 152/98
[2019-05-25] MEDS: PIPERACILLIN/TAZ 3.375G PREMIX 50 ML IV SCH ×2 (06:14→12:20)
[2019-05-25 06:48] LABS: BASOPHILS % 0.1 % (0.0-2.0); EOSINOPHILS % 0.3 % (0.0-5.0); HEMATOCRIT. 26.4 % (42.0-52.0); HEMOGLOBIN. 9.3 g/dL (14.0-18.0); MEAN CORPUSCULAR HEMOGLOBIN 29.6 pg (28.0-32.0); MEAN CORPUSCULAR VOLUME 84.5 fL (80.0-94.0); MEAN PLATELET VOLUME 8.1 fl (7.4-10.4); MONOCYTES % 10.6 % (2.0-8.0); PLATELET 240 x1000/uL (130-400); RED BLOOD CELL COUNT 3.13 mill/uL (4.7-6.1)
[2019-05-25 07:31] LABS: CHLORIDE 103 mEq/L (98-107)
[2019-05-25 08:00] VITALS: BP 149/89
[2019-05-25] MEDS: VANCOMYCIN 750 MG PREMIX 150 ML IV SCH (08:19)
[2019-05-25] MEDS: AMLODIPINE 10MG TABLET PO SCH (08:20)
[2019-05-25] MEDS: PREDNISONE 10MG TABLET PO SCH (08:20)
[2019-05-25] MEDS: METOPROLOL TARTRATE 25MG TABLET PO SCH (08:20)
[2019-05-25] MEDS: ENOXAPARIN 40MG/0.4ML SYR SUBCUT SCH ×2 (08:23→08:25)
[2019-05-25] MEDS: DEXT 5%/0.45% NACL 1000ML 1,000 ML IV SCH (08:28)
[2019-05-25 11:01] VITALS: BP 149/89
[2019-05-26] MEDS ORDERED: VANCOMYCIN 1 G PREMIX 200 ML IV SCH (04:00)
== END 2019-05-25 16:40 | disposition home or self-care (01) | DRG 683 ==
LOC: ER 19:46 → 8WST 21:29 → EDBEDREQ 21:35 → EDBEDREQTM 21:35 → ENRESERV 05-23 02:01
PROVIDERS: ADMIT Internal Medicine Nephrology; ATTEND Internal Medicine Nephrology
DX: N17.9 Acute kidney failure, unspecified (principal); E44.1 Mild protein-calorie malnutrition; J01.00 Acute maxillary sinusitis, unspecified; J01.20 Acute ethmoidal sinusitis, unspecified; D64.9 Anemia, unspecified; J01.10 Acute frontal sinusitis, unspecified; I12.9 Hypertensive chronic kidney disease with stage 1 through stage 4 chronic kidney disease, or unspecified chronic kidney disease; E66.9 Obesity, unspecified; N18.9 Chronic kidney disease, unspecified; Z79.899 Other long term (current) drug therapy; Z68.27 Body mass index [BMI] 27.0-27.9, adult
CPT/HCPCS: 36415; 70486; 71045; 80048; 80061; 80202; 80305; 80320; 83880; 84484; 85014; 85018; 93005; 93306; 93970; 96374; 96376; 99291; J1650; J2543; J3370; J3490; J7060; J7512; G0480

== ENCOUNTER 2019-09-15 23:16 | Inpatient (IN) | payer SELFPAY ==
[~2019-09-15] VITALS: Ht 175.3 cm; Wt 76.9 kg
[~2019-09-15 23:16] MED LIST changes: +CALC-1017 PO; -CALC-1042 PO; +FURO40TA5 PO; +LISI-604 PO
[2019-09-16] MEDS ORDERED: SODIUM CHLORIDE 0.9% 1,000 ML IV ONE ×2 (00:30→07:00)
[2019-09-16] MEDS ORDERED: ASPIRIN 81MG TABLET PO ONE (00:30)
[2019-09-16 01:23] LABS: HEMATOCRIT. 40.3 % (42.0-52.0); HEMOGLOBIN. 13.8 g/dL (14.0-18.0); MEAN CORPUSCULAR HEMOGLOBIN 29.3 pg (28.0-32.0); MEAN CORPUSCULAR VOLUME 85.8 fL (80.0-94.0); MEAN PLATELET VOLUME 8.7 fl (7.4-10.4); PLATELET 176 x1000/uL (130-400); RED CELL DISTRIBUTION WIDTH 16.6 % (11.6-14.6)
[2019-09-16 01:27] LABS: CHLORIDE 99 mEq/L (98-107)
[2019-09-16 04:16] LABS: PLATELET ESTIMATE NORMAL
[2019-09-16 08:00] VITALS: BP 144/94
[2019-09-16] MEDS ORDERED: IPRATROPIUM/ALBUTEROL 0.5-3(2.5)MG/3ML NEB NEB PRN (08:15)
[2019-09-16] MEDS ORDERED: NITROGLYCERIN 0.4MG TABLET SL SL PRN (08:15)
[2019-09-16] MEDS ORDERED: DOCUSATE SODIUM 100MG CAPSULE PO PRN (08:15)
[2019-09-16] MEDS ORDERED: GUAIFENESIN 200MG/10ML SUGAR FREE UDC PO PRN (08:15)
[2019-09-16] MEDS ORDERED: ACETAMINOPHEN 325MG TABLET PO PRN (08:15)
[2019-09-16] MEDS ORDERED: MAGNESIUM/ALUMINUM HYDROXIDE/SIMETHICONE 30ML UDC PO PRN (08:15)
[2019-09-16] MEDS ORDERED: ONDANSETRON HCL 4MG/2ML INJ IV PRN (08:15)
[2019-09-16] MEDS ORDERED: CLONIDINE 0.1MG TABLET PO PRN (08:15)
[2019-09-16] MEDS ORDERED: KETOROLAC 15MG/ML VIAL IV PRN (08:30)
[2019-09-16 09:00] VITALS: BP 144/94
[2019-09-16] MEDS: ASPIRIN 325MG EC TABLET PO SCH (10:08)
[2019-09-16] MEDS: METOPROLOL TARTRATE 25MG TABLET PO SCH ×2 (10:08→21:56)
[2019-09-16] MEDS: ENOXAPARIN 40MG/0.4ML SYR SUBCUT SCH (10:09)
[2019-09-16] MEDS: AMLODIPINE 10MG TABLET PO SCH (10:09)
[2019-09-16] MEDS: LISINOPRIL 20MG TABLET PO SCH ×2 (10:09→21:57)
[2019-09-16] MEDS: GUAIFENESIN 600MG ER TABLET PO SCH ×2 (10:09→21:56)
[2019-09-16] MEDS: FAMOTIDINE 20MG TABLET PO SCH ×2 (10:09→22:03)
[2019-09-16] MEDS ORDERED: IOHEXOL-350 100 ML BOTTLE ONE (10:26)
[2019-09-16 12:06] VITALS: BP 175/107
[2019-09-16] MEDS: METHYLPREDNISOLONE SOD SUCC 125 MG/2 ML VIAL IV SCH ×2 (16:05→21:58)
[2019-09-16 16:07] VITALS: BP 147/87
[2019-09-16 20:00] VITALS: BP 146/97
[2019-09-16] MEDS ORDERED: ZOLPIDEM TARTRATE 5MG TABLET PO PRN (21:00)
[2019-09-17] VITALS: BP 145/98
[2019-09-17 00:19] LABS: CREATINE KINASE 52 IU/L (39-308)
[2019-09-17 00:20] LABS: CREATINE KINASE MB FRACTION < 1.0 ng/mL (0.5-3.6)
[2019-09-17 04:00] VITALS: BP 156/91
[2019-09-17] MEDS: METHYLPREDNISOLONE SOD SUCC 125 MG/2 ML VIAL IV SCH ×2 (06:33→14:00)
[2019-09-17 08:00] VITALS: BP 156/95
[2019-09-17] MEDS: METOPROLOL TARTRATE 25MG TABLET PO SCH (09:00)
[2019-09-17] MEDS: ENOXAPARIN 40MG/0.4ML SYR SUBCUT SCH (09:00)
[2019-09-17] MEDS: FAMOTIDINE 20MG TABLET PO SCH (09:00)
[2019-09-17] MEDS: LISINOPRIL 20MG TABLET PO SCH (09:00)
[2019-09-17] MEDS: ASPIRIN 325MG EC TABLET PO SCH (09:00)
[2019-09-17] MEDS: GUAIFENESIN 600MG ER TABLET PO SCH (09:00)
[2019-09-17] MEDS: AMLODIPINE 10MG TABLET PO SCH (09:00)
[2019-09-17 11:13] VITALS: BP 156/95
[2019-09-17 12:00] VITALS: BP 136/95
== END 2019-09-17 15:50 | disposition home or self-care (01) | DRG 142 ==
LOC: ER 23:16 → 6WST 09-16 06:52 → ENRESERV 09-16 07:31
PROVIDERS: ADMIT Internal Medicine; ATTEND Internal Medicine
DX: D86.9 Sarcoidosis, unspecified (principal); N17.0 Acute kidney failure with tubular necrosis; J44.1 Chronic obstructive pulmonary disease with (acute) exacerbation; E44.1 Mild protein-calorie malnutrition; E87.1 Hypo-osmolality and hyponatremia; J45.901 Unspecified asthma with (acute) exacerbation; Z68.25 Body mass index [BMI] 25.0-25.9, adult; E78.00 Pure hypercholesterolemia, unspecified; I10 Essential (primary) hypertension; Z79.899 Other long term (current) drug therapy
CPT/HCPCS: 36415; 71045; 71275; 80061; 82550; 82553; 83036; 83880; 84484; 93005; 93970; 99285; J1650; J1885; J2930; J7030; Q9967